=== PATIENT | female | born 1940 | race Caucasian/White ===

== ENCOUNTER 2018-02-18 19:46 | Inpatient (IN) | payer MEDICARE ==
[~2018-02-18] VITALS: Ht 160 cm; Wt 63.6 kg
[~2018-02-18 19:46] MED LIST: ALEN40TA2 PO; AMIO200T40 PO; ASCO1TAB13 PO; BETA1TAB18 PO; CALC-729 PO; CHOL10008 PO; COU2.5T PO; CYPR4TAB57 PO; FLAXSEED; LOSA50TA3 PO; MAGNESIUM 250MG; METAMUCIL POWD283 GM PO; NOR5T PO; OMEG300C2 PO; OMEP-84 PO; POTA10TA19 PO; SPIR25TA5 PO; SYN0.088T PO; WARF5TAB PO; ZOLP10TA5 PO
[2018-02-18] MEDS ORDERED: morphine 4 MG/ML inj SYRINge IV STA (20:17)
[2018-02-18] MEDS ORDERED: ondansetron/PF 4mg/2ml inj IV ONE (20:20)
[2018-02-18] MEDS ORDERED: normal saline 1000ML IV soln IVB ONE (20:55)
[2018-02-18] MEDS ORDERED: propofol 10mg/ml 20ml vial IV ONE (20:55)
[2018-02-18] MEDS ORDERED: morphine 4 MG/ML inj SYRINge IV ONE (22:25)
[2018-02-18] MEDS ORDERED: SPIR25TA5 PO (22:32)
[2018-02-18] MEDS ORDERED: OSC500T PO (22:32)
[2018-02-18] MEDS ORDERED: LOSA25TA96 PO (22:32)
[2018-02-18] MEDS ORDERED: VITA1CAP PO (22:32)
[2018-02-18] MEDS ORDERED: PSYL3.4P5 PO (22:32)
[2018-02-18] MEDS ORDERED: LEVO50TA8 PO (22:32)
[2018-02-18] MEDS ORDERED: CYPR4TAB57 PO (22:32)
[2018-02-18] MEDS ORDERED: COU5T PO (22:32)
[2018-02-18] MEDS ORDERED: AMIO200T54 PO (22:32)
[2018-02-18] MEDS ORDERED: ASCO500C15 PO (22:32)
[2018-02-18] MEDS ORDERED: POTA10TA19 PO (22:32)
[2018-02-18] MEDS ORDERED: COU2.5T PO (22:32)
[2018-02-18] MEDS ORDERED: OMEP40CA37 PO (22:32)
[2018-02-18] MEDS ORDERED: mag hydrox/Alum hydrox/simeth 30ml oral suspension PO PRN (23:15)
[2018-02-18] MEDS ORDERED: acetaminophen 325mg tablet PO PRN (23:15)
[2018-02-18] MEDS ORDERED: ondansetron/PF 4mg/2ml inj IV PRN (23:15)
[2018-02-18] MEDS ORDERED: magnesium hydroxide 30ml (MOM) UD suspension PO PRN (23:15)
[2018-02-18 23:39] LABS: BASOPHILS % (AUTO) 0.3 % (0-1); EOSINOPHILS % (AUTO) 0.2 % (0-6); HEMATOCRIT 37.9 % (35.0-45.0); HEMOGLOBIN 13.3 g/dl (12.0-16.0); LYMPHOCYTES # (AUTO) 0.9 X10'3 (1.1-4.8); MEAN CORPUSCULAR HEMOGLOBIN 31.8 PG (27.0-31.0); MEAN CORPUSCULAR HGB CONC 35.1 % (33.0-36.5); MEAN CORPUSCULAR VOLUME 90.7 FL (78-98); MEAN PLATELET VOLUME 7.2 FL (7.4-10.4); MONOCYTES # (AUTO) 0.5 X10'3 (0-0.9); MONOCYTES % (AUTO) 5.8 % (2-12); NEUTROPHILS # (AUTO) 7.1 X10'3 (1.8-7.7); NEUTROPHILS % (AUTO) 82.7 % (42-75); PLATELET COUNT 362 X10'3 (140-440); RED BLOOD COUNT 4.18 X10'6 (4.20-5.60); RED CELL DISTRIBUTION WIDTH 12.5 % (11.5-14.5); WHITE BLOOD COUNT 8.5 X10'3 (4.5-11.0)
[2018-02-18 23:46] LABS: PARTIAL THROMBOPLASTIN TIME 34 SECONDS (22-32); PROTHROMBIN TIME 20.3 SECONDS (9.0-12.0)
[2018-02-18] MEDS: normal saline 1000ml 1,000 ML IV SCH (23:50)
[2018-02-18 23:52] LABS: ALANINE AMINOTRANSFERASE 35 U/L (12-78); ALBUMIN 3.9 G/DL (3.4-5.0); ALBUMIN/GLOBULIN RATIO 1.3 (1.1-1.5); ALKALINE PHOSPHATASE 57 IU/L (46-116); ANION GAP 12 (8-16); ASPARTATE AMINO TRANSFERASE 33 U/L (10-37); BILIRUBIN,TOTAL 0.5 MG/DL (0.1-1.0); BLOOD UREA NITROGEN 12 MG/DL (7-18); BUN/CREATININE RATIO 15.4 (6.6-38.0); CALCIUM 8.4 MG/DL (8.5-10.1); CHLORIDE 97 MMOL/L (99-107); CREATININE 0.78 MG/DL (0.40-0.90); GLUCOSE 100 MG/DL (70-104); SODIUM 134 MMOL/L (135-145); TOTAL CARBON DIOXIDE 24.9 MMOL/L (24-32); eGFR 71 ML/MIN
[2018-02-19 00:12] LABS: CLARITY,URINE CLEAR (Clear); COLOR,URINE YELLOW (Yellow); GLUCOSE, URINE NEGATIVE (Neg); KETONES,URINE NEGATIVE (Neg); LEUKOCYTE ESTERASE ,URINE NEGATIVE (Neg); NITRITES, URINE NEGATIVE (Neg); OCCULT BLOOD,URINE SMALL (Neg); PH,URINE 5.5 (4.8-8.0); PROTEIN,URINE NEGATIVE (Neg); UROBILINOGEN,URINE 0.2 E.U/dL (0.2-1.0)
[2018-02-19 00:19] LABS: UA COLLECTION TYPE FOLEY CATH
[2018-02-19 00:21] LABS: BACTERIA,URINE NONE SEEN /HPF (Neg); SQUAMOUS EPITHELIAL CELL,UR NONE SEEN /LPF (FEW); WBC,URINE NONE SEEN /HPF (0-4)
[2018-02-19 01:06] VITALS: BP 137/59
[2018-02-19] MEDS: morphine 2 MG/ML inj. syringe IV PRN (01:49)
[2018-02-19] MEDS ORDERED: CYPR4TAB57 PO (02:26)
[2018-02-19] MEDS ORDERED: morphine 2 MG/ML inj. syringe IV STA (02:38)
[2018-02-19] MEDS: morphine 4 MG/ML inj SYRINge IV PRN ×3 (05:48→20:53)
[2018-02-19 06:00] VITALS: BP_SYST 105; BP_SYST 112; BP_DIAS 61; BP_DIAS 67
[2018-02-19 07:50] LABS: BASOPHILS % (AUTO) 0.4 % (0-1); EOSINOPHILS # (AUTO) 0.1 X10'3 (0-0.9); HEMATOCRIT 37.7 % (35.0-45.0); HEMOGLOBIN 13.3 g/dl (12.0-16.0); LYMPHOCYTES # (AUTO) 1.2 X10'3 (1.1-4.8); LYMPHOCYTES % (AUTO) 18.5 % (21-51); MEAN CORPUSCULAR HEMOGLOBIN 31.8 PG (27.0-31.0); MEAN CORPUSCULAR HGB CONC 35.2 % (33.0-36.5); MEAN CORPUSCULAR VOLUME 90.2 FL (78-98); MEAN PLATELET VOLUME 6.9 FL (7.4-10.4); MONOCYTES # (AUTO) 0.7 X10'3 (0-0.9); MONOCYTES % (AUTO) 11.5 % (2-12); NEUTROPHILS # (AUTO) 4.5 X10'3 (1.8-7.7); NEUTROPHILS % (AUTO) 68.6 % (42-75); PLATELET COUNT 333 X10'3 (140-440); RED BLOOD COUNT 4.18 X10'6 (4.20-5.60); RED CELL DISTRIBUTION WIDTH 12.8 % (11.5-14.5); WHITE BLOOD COUNT 6.5 X10'3 (4.5-11.0)
[2018-02-19 07:55] LABS: ALANINE AMINOTRANSFERASE 32 U/L (12-78); ALBUMIN 3.5 G/DL (3.4-5.0); ALBUMIN/GLOBULIN RATIO 1.1 (1.1-1.5); ALKALINE PHOSPHATASE 52 IU/L (46-116); ANION GAP 7 (8-16); ASPARTATE AMINO TRANSFERASE 31 U/L (10-37); BILIRUBIN,TOTAL 0.9 MG/DL (0.1-1.0); BLOOD UREA NITROGEN 9 MG/DL (7-18); BUN/CREATININE RATIO 12.2 (6.6-38.0); CALCIUM 8.5 MG/DL (8.5-10.1); CHLORIDE 101 MMOL/L (99-107); CREATININE 0.74 MG/DL (0.40-0.90); GLUCOSE 90 MG/DL (70-104); POTASSIUM 3.9 MMOL/L (3.5-5.1); SODIUM 136 MMOL/L (135-145); TOTAL CARBON DIOXIDE 27.6 MMOL/L (24-32); TOTAL PROTEIN 6.6 G/DL (6.4-8.2); eGFR 76 ML/MIN
[2018-02-19 08:04] LABS: INR 2.1 INR; PROTHROMBIN TIME 20.7 SECONDS (9.0-12.0)
[2018-02-19] MEDS ORDERED: potassium Cl 40MEQ/NS 500ml 500 ML IV PRN ×2 (09:05)
[2018-02-19] MEDS ORDERED: potassium Cl 20 mEq SR tablet PO PRN ×2 (09:05)
[2018-02-19] MEDS ORDERED: magnesium Cl slow-release 64mg tablet PO PRN (09:05)
[2018-02-19] MEDS ORDERED: magnesium 4gm in 100ml NS 100 ML IV PRN (09:05)
[2018-02-19] MEDS ORDERED: HYDROcodone/acetaminophen 5mg/325mg tablet PO PRN (09:05)
[2018-02-19] MEDS: losartan 50mg tablet PO SCH (09:16)
[2018-02-19] MEDS: pantoprazole 40mg Tablet.DR PO SCH (09:16)
[2018-02-19] MEDS: amiodarone 200mg tablet PO SCH (09:16)
[2018-02-19] MEDS: normal saline 1000ml 1,000 ML IV SCH ×2 (09:21→19:22)
[2018-02-19] MEDS: HYDROcodone/acetaminophen 10/325mg tab PO PRN ×3 (10:52→19:27)
[2018-02-19 11:00] VITALS: BP 153/60
[2018-02-19 18:00] VITALS: BP 141/72
[2018-02-19] MEDS: spironolactone 25 MG tablet PO SCH (18:55)
[2018-02-19] MEDS ORDERED: warfarin 2.5mg tablet PO ONE (21:00)
[2018-02-19] MEDS ORDERED: warfarin 7.5mg tablet PO ONE (21:00)
[2018-02-19 22:00] VITALS: BP 113/74
[2018-02-20] VITALS (7 sets, daily range): BP systolic 137–184; BP diastolic 69–94
[2018-02-20] MEDS: normal saline 1000ml 1,000 ML IV SCH ×2 (04:39→15:49)
[2018-02-20] MEDS: HYDROcodone/acetaminophen 10/325mg tab PO PRN ×2 (05:19→09:55)
[2018-02-20 05:56] LABS: BASOPHILS % (AUTO) 0.4 % (0-1); EOSINOPHILS # (AUTO) 0.1 X10'3 (0-0.9); EOSINOPHILS % (AUTO) 1.8 % (0-6); HEMATOCRIT 35.7 % (35.0-45.0); HEMOGLOBIN 12.6 g/dl (12.0-16.0); LYMPHOCYTES # (AUTO) 1.2 X10'3 (1.1-4.8); LYMPHOCYTES % (AUTO) 15.7 % (21-51); MEAN CORPUSCULAR HEMOGLOBIN 32.6 PG (27.0-31.0); MEAN CORPUSCULAR HGB CONC 35.3 % (33.0-36.5); MEAN CORPUSCULAR VOLUME 92.2 FL (78-98); MEAN PLATELET VOLUME 7.3 FL (7.4-10.4); MONOCYTES # (AUTO) 0.8 X10'3 (0-0.9); MONOCYTES % (AUTO) 10.3 % (2-12); NEUTROPHILS # (AUTO) 5.2 X10'3 (1.8-7.7); NEUTROPHILS % (AUTO) 71.8 % (42-75); PLATELET COUNT 293 X10'3 (140-440); RED BLOOD COUNT 3.87 X10'6 (4.20-5.60); RED CELL DISTRIBUTION WIDTH 12.5 % (11.5-14.5); WHITE BLOOD COUNT 7.3 X10'3 (4.5-11.0)
[2018-02-20 06:16] LABS: ALANINE AMINOTRANSFERASE 30 U/L (12-78); ALBUMIN 3.1 G/DL (3.4-5.0); ALKALINE PHOSPHATASE 54 IU/L (46-116); ANION GAP 8 (8-16); ASPARTATE AMINO TRANSFERASE 29 U/L (10-37); BILIRUBIN,TOTAL 0.9 MG/DL (0.1-1.0); BLOOD UREA NITROGEN 7 MG/DL (7-18); BUN/CREATININE RATIO 9.7 (6.6-38.0); CALCIUM 8.3 MG/DL (8.5-10.1); CHLORIDE 102 MMOL/L (99-107); CREATININE 0.72 MG/DL (0.40-0.90); GLUCOSE 111 MG/DL (70-104); MAGNESIUM 1.8 MG/DL (1.5-2.4); PHOSPHORUS 2.8 MG/DL (2.3-4.5); POTASSIUM 3.8 MMOL/L (3.5-5.1); SODIUM 136 MMOL/L (135-145); TOTAL CARBON DIOXIDE 25.7 MMOL/L (24-32); TOTAL PROTEIN 6.3 G/DL (6.4-8.2); eGFR 78 ML/MIN
[2018-02-20] MEDS: morphine 4 MG/ML inj SYRINge IV PRN (06:43)
[2018-02-20] MEDS: levoTHYROXINE 25mcg tablet PO SCH (06:46)
[2018-02-20] MEDS: calcium carbonate 500mg tablet PO SCH (08:32)
[2018-02-20] MEDS: spironolactone 25 MG tablet PO SCH (08:32)
[2018-02-20] MEDS: pantoprazole 40mg Tablet.DR PO SCH (08:32)
[2018-02-20] MEDS: losartan 50mg tablet PO SCH (08:32)
[2018-02-20] MEDS: ascorbic acid 500mg tablet PO SCH (08:33)
[2018-02-20] MEDS: vitamin B comp w/Vit. C tab 1 TAB TABLET PO SCH (08:33)
[2018-02-20] MEDS: amiodarone 200mg tablet PO SCH (08:33)
[2018-02-20] MEDS ORDERED: LORazepam 2 mg/ml vial IV PRN (10:05)
[2018-02-20] MEDS ORDERED: thiamine 100mg/ml 2ml inj. IV ONE (10:05)
[2018-02-20] MEDS ORDERED: dextrose 50%-water 50ml dispensing syringe IV PRN (10:05)
[2018-02-20] MEDS ORDERED: haloperidol lactate 5mg/ml inj IM PRN (10:05)
[2018-02-20] MEDS ORDERED: haloperidol 5mg tablet PO PRN (10:05)
[2018-02-20] MEDS ORDERED: thiamine 100mg tablet PO ONE (11:05)
[2018-02-20] MEDS: oxyCODONE/APAP 10/325mg tablet PO PRN ×2 (11:50→20:16)
[2018-02-20] MEDS ORDERED: amLODIPine 5mg tablet PO ONE (13:10)
[2018-02-20] MEDS: LORazepam 1 MG tablet PO PRN (13:24)
[2018-02-20 13:35] LABS: INR 1.8 INR; PROTHROMBIN TIME 17.9 SECONDS (9.0-12.0)
[2018-02-20] MEDS ORDERED: warfarin 2.5mg tablet PO ONE (21:00)
[2018-02-21] MEDS: oxyCODONE/APAP 10/325mg tablet PO PRN ×2 (00:12→13:57)
[2018-02-21] MEDS: normal saline 1000ml 1,000 ML IV SCH ×2 (01:24→10:10)
[2018-02-21 06:00] VITALS: BP 147/67
[2018-02-21 06:27] LABS: INR 1.6 INR; PROTHROMBIN TIME 16.6 SECONDS (9.0-12.0)
[2018-02-21 06:30] LABS: ALANINE AMINOTRANSFERASE 21 U/L (12-78); ALBUMIN 2.4 G/DL (3.4-5.0); ALBUMIN/GLOBULIN RATIO 0.8 (1.1-1.5); ALKALINE PHOSPHATASE 39 IU/L (46-116); ANION GAP 5 (8-16); ASPARTATE AMINO TRANSFERASE 20 U/L (10-37); BILIRUBIN,TOTAL 0.8 MG/DL (0.1-1.0); BLOOD UREA NITROGEN 6 MG/DL (7-18); BUN/CREATININE RATIO 9.2 (6.6-38.0); CALCIUM 7.9 MG/DL (8.5-10.1); CHLORIDE 104 MMOL/L (99-107); CREATININE 0.65 MG/DL (0.40-0.90); GLUCOSE 91 MG/DL (70-104); MAGNESIUM 1.7 MG/DL (1.5-2.4); PHOSPHORUS 2.6 MG/DL (2.3-4.5); POTASSIUM 3.7 MMOL/L (3.5-5.1); SODIUM 137 MMOL/L (135-145); TOTAL CARBON DIOXIDE 27.7 MMOL/L (24-32); TOTAL PROTEIN 5.4 G/DL (6.4-8.2); eGFR 88 ML/MIN
[2018-02-21 06:41] LABS: BASOPHILS % (AUTO) 0.4 % (0-1); EOSINOPHILS # (AUTO) 0.2 X10'3 (0-0.9); EOSINOPHILS % (AUTO) 3.7 % (0-6); HEMATOCRIT 32.8 % (35.0-45.0); HEMOGLOBIN 11.2 g/dl (12.0-16.0); LYMPHOCYTES # (AUTO) 1.5 X10'3 (1.1-4.8); LYMPHOCYTES % (AUTO) 30.3 % (21-51); MEAN CORPUSCULAR HEMOGLOBIN 31.3 PG (27.0-31.0); MEAN CORPUSCULAR HGB CONC 34.1 % (33.0-36.5); MEAN CORPUSCULAR VOLUME 91.8 FL (78-98); MEAN PLATELET VOLUME 7.2 FL (7.4-10.4); MONOCYTES # (AUTO) 0.6 X10'3 (0-0.9); MONOCYTES % (AUTO) 12.7 % (2-12); NEUTROPHILS # (AUTO) 2.5 X10'3 (1.8-7.7); NEUTROPHILS % (AUTO) 52.9 % (42-75); PLATELET COUNT 292 X10'3 (140-440); RED BLOOD COUNT 3.58 X10'6 (4.20-5.60); RED CELL DISTRIBUTION WIDTH 12.6 % (11.5-14.5); WHITE BLOOD COUNT 4.8 X10'3 (4.5-11.0)
[2018-02-21] MEDS: levoTHYROXINE 25mcg tablet PO SCH (07:55)
[2018-02-21] MEDS: spironolactone 25 MG tablet PO SCH (07:58)
[2018-02-21] MEDS: losartan 50mg tablet PO SCH (07:59)
[2018-02-21] MEDS: amiodarone 200mg tablet PO SCH (07:59)
[2018-02-21] MEDS: pantoprazole 40mg Tablet.DR PO SCH (07:59)
[2018-02-21] MEDS: ascorbic acid 500mg tablet PO SCH (08:00)
[2018-02-21] MEDS: vitamin B comp w/Vit. C tab 1 TAB TABLET PO SCH (08:00)
[2018-02-21] MEDS ORDERED: amLODIPine 5mg tablet PO SCH (08:00)
[2018-02-21] MEDS: calcium carbonate 500mg tablet PO SCH (08:00)
[2018-02-21 10:00] VITALS: BP 140/73
[2018-02-21] MEDS: LORazepam 1 MG tablet PO PRN (12:10)
[2018-02-21] MEDS: morphine 2 MG/ML inj. syringe IV PRN (12:49)
[2018-02-21] MEDS ORDERED: warfarin 5mg tablet PO ONE (21:00)
== END 2018-02-21 16:24 | DRG 543 ==
LOC: ER 19:47 → ED HOLD 23:15 → ORTHO 4S 02-19 00:40
PROVIDERS: ADMIT Internal Medicine; ATTEND Family Medicine
PROC: 2W3QX1Z Immobilization of Right Lower Leg using Splint (ICD-10-PCS; principal; 2018-02-18)
PROC: 0SSFXZZ Reposition Right Ankle Joint, External Approach (ICD-10-PCS; 2018-02-18)
DX: M80.071A Age-related osteoporosis with current pathological fracture, right ankle and foot, initial encounter for fracture (principal); D68.9 Coagulation defect, unspecified; M24.371 Pathological dislocation of right ankle, not elsewhere classified; E03.9 Hypothyroidism, unspecified; F10.20 Alcohol dependence, uncomplicated; I10 Essential (primary) hypertension; W01.0XXA Fall on same level from slipping, tripping and stumbling without subsequent striking against object, initial encounter; I48.2 Chronic atrial fibrillation; G43.909 Migraine, unspecified, not intractable, without status migrainosus; J45.909 Unspecified asthma, uncomplicated; S09.90XA Unspecified injury of head, initial encounter; Z90.710 Acquired absence of both cervix and uterus; Z95.0 Presence of cardiac pacemaker; Z98.42 Cataract extraction status, left eye; Z98.41 Cataract extraction status, right eye; Z79.01 Long term (current) use of anticoagulants; Z85.42 Personal history of malignant neoplasm of other parts of uterus; Y93.89 Activity, other specified; Y92.090 Kitchen in other non-institutional residence as the place of occurrence of the external cause; Y99.8 Other external cause status; Z79.899 Other long term (current) drug therapy
CPT/HCPCS: 36415; 70450; 73590; 73610; 73700; 80053; 81001; 82948; 83735; 84100; 84443; 85025; 85610; 85730; 87070; 93005; 96361; 96374; 96375; 96376; 97110; 97161; 97530; 99285; J2270; J2405; J2704; J3411; J7030

== ENCOUNTER 2018-06-19 19:00 | Emergency (ER) | payer MEDICARE ==
[~2018-06-19] VITALS: Ht 157.5 cm; Wt 60.0 kg
[~2018-06-19 19:00] MED LIST changes: -ALEN40TA2 PO; -AMIO200T40 PO; +AMIO200T54 PO; -ASCO1TAB13 PO; +ASCO500C15 PO; -BETA1TAB18 PO; -CALC-729 PO; -CHOL10008 PO; +COU5T PO; -FLAXSEED; +LEVO50TA8 PO; +LOSA25TA96 PO; -LOSA50TA3 PO; -MAGNESIUM 250MG; -METAMUCIL POWD283 GM PO; -NOR5T PO; -OMEG300C2 PO; -OMEP-84 PO; +OMEP40CA37 PO; +OSC500T PO; +PSYL3.4P5 PO; -SYN0.088T PO; +VITA1CAP PO; -WARF5TAB PO; -ZOLP10TA5 PO
[2018-06-19 19:05] VITALS: BP 134/65
[2018-06-19 19:54] LABS: BASOPHILS % (AUTO) 0 % (0-1); EOSINOPHILS % (AUTO) 0.1 % (0-6); HEMATOCRIT 38.1 % (35.0-45.0); LYMPHOCYTES # (AUTO) 0.2 X10'3 (1.1-4.8); MEAN CORPUSCULAR HEMOGLOBIN 30.3 PG (27.0-31.0); MEAN CORPUSCULAR HGB CONC 34.2 g/dL (33.0-36.5); MEAN CORPUSCULAR VOLUME 88.6 FL (78-98); MEAN PLATELET VOLUME 6.7 FL (7.4-10.4); MONOCYTES # (AUTO) 0.5 X10'3 (0-0.9); MONOCYTES % (AUTO) 4.3 % (2-12); NEUTROPHILS # (AUTO) 10.7 X10'3 (1.8-7.7); NEUTROPHILS % (AUTO) 93.6 % (42-75); PLATELET COUNT 302 X10'3 (140-440); RED CELL DISTRIBUTION WIDTH 14.6 % (11.5-14.5); WHITE BLOOD COUNT 11.5 X10'3 (4.5-11.0)
[2018-06-19 20:08] LABS: INR 3.4 INR; PROTHROMBIN TIME 32.1 SECONDS (9.0-12.0)
[2018-06-19 20:12] LABS: ALANINE AMINOTRANSFERASE 64 U/L (12-78); ALBUMIN 3.1 G/DL (3.4-5.0); ALBUMIN/GLOBULIN RATIO 0.8 (1.1-1.5); ALKALINE PHOSPHATASE 66 IU/L (46-116); ANION GAP 10 (8-16); ASPARTATE AMINO TRANSFERASE 42 U/L (10-37); BLOOD UREA NITROGEN 22 MG/DL (7-18); CALCIUM 8.1 MG/DL (8.5-10.1); CHLORIDE 100 MMOL/L (99-107); CREATININE 1.05 MG/DL (0.40-0.90); GLUCOSE 133 MG/DL (70-104); SODIUM 135 MMOL/L (135-145); TOTAL CARBON DIOXIDE 25.4 MMOL/L (24-32); eGFR 51 ML/MIN
[2018-06-19 20:20] LABS: PLATELET ESTIMATE NORMAL; TOTAL CELLS COUNTED 100
[2018-06-20] MEDS ORDERED: LEVO50TA PO (12:55)
[2018-06-20] MEDS ORDERED: AMIO200T40 PO (12:56)
[2018-06-20] MEDS ORDERED: LOSA100T57 PO (12:56)
[2018-06-20] MEDS ORDERED: OMEP40CA37 PO (12:57)
[2018-06-20] MEDS ORDERED: SPIR25TA5 PO (12:58)
[2018-06-20] MEDS ORDERED: POTA20TA19 PO (12:58)
[2018-06-20] MEDS ORDERED: CYPR4TAB57 PO (12:59)
[2018-06-20] MEDS ORDERED: PSYL3.4P5 PO (13:00)
[2018-06-20] MEDS ORDERED: ASCO-22 PO (13:02)
[2018-06-20] MEDS ORDERED: CALC-1051 PO (13:04)
[2018-06-20] MEDS ORDERED: VITA-268 PO (13:05)
[2018-06-20] MEDS ORDERED: RED600TA PO (13:05)
[2018-06-20] MEDS ORDERED: WARF2.5T82 PO (13:06)
[2018-06-20] MEDS ORDERED: WARF-55 PO (13:07)
== END 2018-06-19 23:29 | disposition left against medical advice (07) ==
LOC: ER 19:00
DX: R10.9 Unspecified abdominal pain (principal); Z53.21 Procedure and treatment not carried out due to patient leaving prior to being seen by health care provider
CPT/HCPCS: 36415; 80053; 85025; 85610

== ENCOUNTER 2018-06-20 09:29 | Inpatient (IN) | payer MEDICARE | END 2018-06-27 17:10 | disposition home or self-care (01) | LOC: ER 09:29 → ED HOLD 12:28 → PCU 3S 17:20 | DX: A41.9 Sepsis, unspecified organism (principal); J18.1 Lobar pneumonia, unspecified organism; G93.40 Encephalopathy, unspecified ==

== ENCOUNTER 2020-03-13 13:42 | Emergency (ER) | payer MEDICARE ==
[~2020-03-13] VITALS: Ht 160 cm; Wt 67.0 kg
[~2020-03-13 13:42] MED LIST changes: -AMIO200T54 PO; +AMIO200T61 PO; +ASCO-22 PO; -ASCO500C15 PO; +CALC-1051 PO; +CARV3.12 PO; -COU2.5T PO; -COU5T PO; +FISH12002 PO; +FURO-149 PO; +LACT1CAP26 PO; +LEVO50TA PO; -LEVO50TA8 PO; +LOSA100T57 PO; -LOSA25TA96 PO; +OMEP40CA13 PO; -OMEP40CA37 PO; -OSC500T PO; -POTA10TA19 PO; +POTA20TA19 PO; -SPIR25TA5 PO; +VITA-268 PO; -VITA1CAP PO; +WARF2.5T82 PO
[2020-03-13] MEDS ORDERED: HYDROcodone/acetaminophen 5mg/325mg tablet PO ONE (14:55)
[2020-03-13 15:21] VITALS: BP 149/68
== END 2020-03-13 15:25 | disposition home or self-care (01) ==
LOC: ER 13:43
DX: S20.211A Contusion of right front wall of thorax, initial encounter (principal); G43.909 Migraine, unspecified, not intractable, without status migrainosus; I48.91 Unspecified atrial fibrillation; I50.9 Heart failure, unspecified; I11.0 Hypertensive heart disease with heart failure; J45.909 Unspecified asthma, uncomplicated; E03.9 Hypothyroidism, unspecified; Z85.9 Personal history of malignant neoplasm, unspecified; Z90.710 Acquired absence of both cervix and uterus; Z95.0 Presence of cardiac pacemaker; Z98.890 Other specified postprocedural states; Z79.899 Other long term (current) drug therapy; Z79.01 Long term (current) use of anticoagulants; X58.XXXA Exposure to other specified factors, initial encounter; Y93.89 Activity, other specified; Y92.89 Other specified places as the place of occurrence of the external cause; Y99.8 Other external cause status
CPT/HCPCS: 71100; 93005; 99283

== ENCOUNTER 2020-07-06 21:21 | Emergency (ER) | payer MEDICARE ==
[~2020-07-06] VITALS: Ht 160 cm; Wt 65.9 kg
--- NOTE | 2020-07-06 21:28 | NUR ---
SARA KERNS () [phone] CALL FOR A RIDE.
[2020-07-06 21:49] LABS: BASOPHILS # (AUTO) 0.1 X10'3 (0-0.2); EOSINOPHILS # (AUTO) 0.1 X10'3 (0-0.9); EOSINOPHILS % (AUTO) 2.6 % (0-6); HEMOGLOBIN 12.6 g/dl (12.0-16.0); LYMPHOCYTES # (AUTO) 1.6 X10'3 (1.1-4.8); MEAN CORPUSCULAR HEMOGLOBIN 31.2 PG (27.0-31.0); MEAN CORPUSCULAR VOLUME 91.8 FL (78-98); MEAN PLATELET VOLUME 6.7 FL (7.4-10.4); MONOCYTES # (AUTO) 0.5 X10'3 (0-0.9); MONOCYTES % (AUTO) 9.3 % (2-12); NEUTROPHILS # (AUTO) 2.8 X10'3 (1.8-7.7); NEUTROPHILS % (AUTO) 55.1 % (42-75); PLATELET COUNT 341 X10'3 (140-440); RED BLOOD COUNT 4.03 X10'6 (4.20-5.60); RED CELL DISTRIBUTION WIDTH 13.3 % (11.5-14.5); WHITE BLOOD COUNT 5.1 X10'3 (4.5-11.0)
[2020-07-06 21:56] LABS: ALANINE AMINOTRANSFERASE 27 U/L (12-78); ALBUMIN 3.6 G/DL (3.4-5.0); ALBUMIN/GLOBULIN RATIO 1.1 (1.1-1.5); ALKALINE PHOSPHATASE 59 IU/L (46-116); ANION GAP 11 (8-16); ASPARTATE AMINO TRANSFERASE 23 U/L (10-37); BILIRUBIN,TOTAL 0.4 MG/DL (0.1-1.0); BLOOD UREA NITROGEN 15 MG/DL (7-18); BUN/CREATININE RATIO 13.9 (6.6-38.0); CALCIUM 9.2 MG/DL (8.5-10.1); CHLORIDE 102 MMOL/L (99-107); CREATININE 1.08 MG/DL (0.40-0.90); GLUCOSE 93 MG/DL (70-104); POTASSIUM 3.4 MMOL/L (3.5-5.1); SODIUM 139 MMOL/L (135-145); TOTAL CARBON DIOXIDE 26.5 MMOL/L (24-32); eGFR 49 ML/MIN
[2020-07-06] MEDS ORDERED: iohexol 300mg/ml 100ml inj. ONE (22:59)
[2020-07-07 02:04] VITALS: BP 152/63
== END 2020-07-07 02:07 | disposition home or self-care (01) ==
LOC: ER 21:21
DX: R55 Syncope and collapse (principal); R77.8 Other specified abnormalities of plasma proteins; K59.00 Constipation, unspecified; R51.9 Headache, unspecified; R10.84 Generalized abdominal pain; I48.91 Unspecified atrial fibrillation; G43.909 Migraine, unspecified, not intractable, without status migrainosus; I11.0 Hypertensive heart disease with heart failure; I50.9 Heart failure, unspecified; J45.909 Unspecified asthma, uncomplicated; E03.9 Hypothyroidism, unspecified; Z85.9 Personal history of malignant neoplasm, unspecified; Z90.710 Acquired absence of both cervix and uterus; Z95.0 Presence of cardiac pacemaker; Z98.890 Other specified postprocedural states; Z72.89 Other problems related to lifestyle; Z79.899 Other long term (current) drug therapy
CPT/HCPCS: 36415; 70450; 71045; 74177; 80053; 83880; 84484; 85025; 85610; 93005; 99285; Q9967

== ENCOUNTER 2021-03-07 01:24 | Emergency (ER) | payer MEDICARE ==
[~2021-03-07] VITALS: Ht 160 cm; Wt 67.3 kg
[~2021-03-07 01:24] MED LIST changes: -OMEP40CA13 PO; +OMEP40CA21 PO
[2021-03-07 02:18] LABS: BASOPHILS % (AUTO) 0.7 % (0-1); EOSINOPHILS # (AUTO) 0.1 X10'3 (0-0.9); EOSINOPHILS % (AUTO) 2.1 % (0-6); HEMATOCRIT 36.6 % (35.0-45.0); HEMOGLOBIN 12.5 g/dl (12.0-16.0); LYMPHOCYTES # (AUTO) 1.2 X10'3 (1.1-4.8); LYMPHOCYTES % (AUTO) 29.9 % (21-51); MEAN CORPUSCULAR HEMOGLOBIN 30.7 PG (27.0-31.0); MEAN CORPUSCULAR HGB CONC 34.2 g/dL (33.0-36.5); MEAN CORPUSCULAR VOLUME 89.6 FL (78-98); MEAN PLATELET VOLUME 6.5 FL (7.4-10.4); MONOCYTES # (AUTO) 0.5 X10'3 (0-0.9); MONOCYTES % (AUTO) 12.1 % (2-12); NEUTROPHILS # (AUTO) 2.3 X10'3 (1.8-7.7); NEUTROPHILS % (AUTO) 55.2 % (42-75); PLATELET COUNT 336 X10'3 (140-440); RED BLOOD COUNT 4.09 X10'6 (4.20-5.60); RED CELL DISTRIBUTION WIDTH 13.9 % (11.5-14.5); WHITE BLOOD COUNT 4.1 X10'3 (4.5-11.0)
[2021-03-07 03:21] LABS: ALANINE AMINOTRANSFERASE 44 U/L (12-78); ALBUMIN 3.3 G/DL (3.4-5.0); ALBUMIN/GLOBULIN RATIO 0.9 (1.1-1.5); ALKALINE PHOSPHATASE 36 IU/L (46-116); ANION GAP 11 (8-16); ASPARTATE AMINO TRANSFERASE 25 U/L (10-37); BILIRUBIN,TOTAL 0.3 MG/DL (0.1-1.0); BLOOD UREA NITROGEN 16 MG/DL (7-18); BUN/CREATININE RATIO 12.6 (6.6-38.0); CALCIUM 8.5 MG/DL (8.5-10.1); CHLORIDE 99 MMOL/L (99-107); CREATININE 1.27 MG/DL (0.40-0.90); GLUCOSE 140 MG/DL (70-104); MAGNESIUM 2.1 MG/DL (1.5-2.4); POTASSIUM 3.6 MMOL/L (3.5-5.1); SODIUM 134 MMOL/L (135-145); TOTAL CARBON DIOXIDE 24.1 MMOL/L (24-32); TOTAL PROTEIN 6.8 G/DL (6.4-8.2); eGFR 40 ML/MIN
[2021-03-07 04:30] VITALS: BP 139/70
== END 2021-03-07 06:15 | disposition home or self-care (01) ==
LOC: ER 01:25
DX: R55 Syncope and collapse (principal); R06.02 Shortness of breath; R06.01 Orthopnea; I48.91 Unspecified atrial fibrillation; I11.0 Hypertensive heart disease with heart failure; J45.909 Unspecified asthma, uncomplicated; E03.9 Hypothyroidism, unspecified; Z85.9 Personal history of malignant neoplasm, unspecified; Z95.0 Presence of cardiac pacemaker; Z79.01 Long term (current) use of anticoagulants; Z79.899 Other long term (current) drug therapy; Z90.710 Acquired absence of both cervix and uterus
CPT/HCPCS: 36415; 71045; 80053; 83735; 83880; 84484; 85025; 93005; 99285

== ENCOUNTER 2022-08-22 10:12 | Day surgery (SDC) | payer MEDICARE ==
[2022-08-18 11:30] LABS: BASOPHILS # (AUTO) 0.1 X10'3 (0-0.2); BASOPHILS % (AUTO) 1.5 % (0-1); EOSINOPHILS # (AUTO) 0.1 X10'3 (0-0.9); EOSINOPHILS % (AUTO) 2.6 % (0-6); HEMATOCRIT 39.5 % (35.0-45.0); HEMOGLOBIN 13.4 g/dl (12.0-16.0); LYMPHOCYTES # (AUTO) 1.3 X10'3 (1.1-4.8); LYMPHOCYTES % (AUTO) 34.1 % (21-51); MEAN CORPUSCULAR HEMOGLOBIN 30.8 PG (27.0-31.0); MEAN CORPUSCULAR HGB CONC 33.9 g/dL (33.0-36.5); MEAN CORPUSCULAR VOLUME 90.8 FL (78-98); MEAN PLATELET VOLUME 6.3 FL (7.4-10.4); MONOCYTES # (AUTO) 0.4 X10'3 (0-0.9); NEUTROPHILS % (AUTO) 51.8 % (42-75); PLATELET COUNT 333 X10'3 (140-440); RED BLOOD COUNT 4.35 X10'6 (4.20-5.60); WHITE BLOOD COUNT 3.8 X10'3 (4.5-11.0)
[2022-08-18 11:40] LABS: APTT 44 SECONDS (22-32)
[2022-08-18 11:45] LABS: ALBUMIN 3.6 G/DL (3.4-5.0); ANION GAP 7 (8-16); BLOOD UREA NITROGEN 14 MG/DL (7-18); BUN/CREATININE RATIO 17.1 (10.0-20.0); CHLORIDE 101 MMOL/L (99-107); CHOL/HDL RATIO 2.8 (0.00-4.99); CHOLESTEROL 273 MG/DL (0-200); CREATININE 0.82 MG/DL (0.40-0.90); GLUCOSE 100 MG/DL (70-104); HDL CHOLESTEROL 99 MG/DL (35-60); LDL CHOLESTEROL 144 MG/DL (50-100); SODIUM 137 MMOL/L (135-145); TOTAL CARBON DIOXIDE 29.4 MMOL/L (24-32); TRIGLYCERIDES 61 MG/DL (20-135); eGFR 67 ML/MIN
[~2022-08-22] VITALS: Ht 160 cm; Wt 70.1 kg
[2022-08-22] VITALS (8 sets, daily range): BP systolic 132–176; BP diastolic 56–78
[~2022-08-22 10:12] MED LIST changes: -ASCO-22 PO; -CALC-1051 PO; -CARV3.12 PO; +CARV6.2553 PO; +DONE-46 PO; -FISH12002 PO; -FURO-149 PO; -LACT1CAP26 PO; -LOSA100T57 PO; -POTA20TA19 PO; -PSYL3.4P5 PO; +SACU1TAB7 PO; +SPIR25TA5 PO; -VITA-268 PO; +ZOLP5TAB8 PO
[2022-08-22] MEDS ORDERED: normal saline 1,000 ML IV SCH (10:25)
[2022-08-22] MEDS ORDERED: diphenhydrAMINE 25mg capsule PO PRN (10:25)
[2022-08-22] MEDS ORDERED: LORazepam 0.5 MG tablet PO PRN (10:25)
[2022-08-22] MEDS ORDERED: DENO60DI SUBCUT (10:50)
[2022-08-22] MEDS ORDERED: SACU1TAB PO (10:50)
[2022-08-22] MEDS ORDERED: CHOL50004 PO (11:04)
[2022-08-22] MEDS ORDERED: VITA-268 PO (11:04)
[2022-08-22] MEDS ORDERED: CALC500T63 PO (11:04)
[2022-08-22] MEDS ORDERED: OMEG-5 PO (11:04)
[2022-08-22] MEDS ORDERED: LACT1CAP65 PO (11:04)
[2022-08-22] MEDS ORDERED: ASCO500C17 PO (11:04)
[2022-08-22] MEDS ORDERED: verapamil 2.5 mg/ml inj IV ONE (11:56)
[2022-08-22] MEDS ORDERED: nitroGLYCERIN-Tridil 50MG/D5W 250 ML IV ONE (11:56)
[2022-08-22] MEDS ORDERED: fentaNYL/PF 50MCG/1 ML 2ML syringe ONE (11:56)
[2022-08-22] MEDS ORDERED: iohexol 350MG/ML 100ml bottle IV ONE (11:57)
[2022-08-22] MEDS ORDERED: LIDOcaine 1% (10mg/ml) 2ml vial ONE (11:57)
[2022-08-22] MEDS ORDERED: heparin 1,000unit/ml 10ml vial 10 ML ONE (11:57)
[2022-08-22] MEDS ORDERED: midazolam 1 mg/ML 2ml injection ONE (11:57)
[2022-08-22] MEDS ORDERED: LIDOcaine 1% 30ml preserv. free vial ONE (13:18)
[2022-08-22] MEDS ORDERED: HYDROcodone/acetaminophen 10/325mg tab PO PRN (14:15)
[2022-08-22] MEDS ORDERED: HYDROcodone/acetaminophen 5mg/325mg tablet PO PRN (14:15)
[2022-08-22 15:24] LABS: ISTAT Hct MIX 37 %PCV (35-45); ISTAT O2 SATURATION MIX VENOUS 93 % (60-80); ISTAT SOURCE BLNK
== END 2022-08-22 16:45 | disposition home or self-care (01) ==
LOC: SSTAY O 10:12
PROVIDERS: ATTEND Student in an Organized Health Care Education/Training Program
DX: I35.0 Nonrheumatic aortic (valve) stenosis (principal); I25.10 Atherosclerotic heart disease of native coronary artery without angina pectoris; G47.33 Obstructive sleep apnea (adult) (pediatric); I11.0 Hypertensive heart disease with heart failure; I50.9 Heart failure, unspecified; I44.7 Left bundle-branch block, unspecified; I42.9 Cardiomyopathy, unspecified; E78.5 Hyperlipidemia, unspecified; K21.9 Gastro-esophageal reflux disease without esophagitis; E87.1 Hypo-osmolality and hyponatremia; E87.6 Hypokalemia; I48.0 Paroxysmal atrial fibrillation; Z95.810 Presence of automatic (implantable) cardiac defibrillator; Z79.899 Other long term (current) drug therapy; Z85.42 Personal history of malignant neoplasm of other parts of uterus
CPT/HCPCS: 36415; 80048; 80061; 82803; 85014; 85025; 85610; 85730; 93005; 93456; 99152; C1894; J1644; J2250; J3010; J3490; J7030; Q0163; Q9967; 93460; 99153; A6258; A6402; C1751

== ENCOUNTER 2022-09-15 10:24 | Outpatient (CLI) | payer MEDICARE ==
[~2022-09-15 10:24] MED LIST changes: +ASCO500C17 PO; +CALC500T63 PO; +CHOL50004 PO; +DENO60DI SUBCUT; -DONE-46 PO; +LACT1CAP65 PO; +OMEG-5 PO; +SACU1TAB PO; -SACU1TAB7 PO; +VITA-268 PO
[2022-09-15 10:58] LABS: EOSINOPHILS % (AUTO) 1.3 % (0-6); HEMATOCRIT 39.7 % (35.0-45.0); HEMOGLOBIN 13.4 g/dl (12.0-16.0); LYMPHOCYTES # (AUTO) 0.9 X10'3 (1.1-4.8); LYMPHOCYTES % (AUTO) 25.1 % (21-51); MEAN CORPUSCULAR HEMOGLOBIN 30.9 PG (27.0-31.0); MEAN CORPUSCULAR HGB CONC 33.9 g/dL (33.0-36.5); MEAN CORPUSCULAR VOLUME 91.2 FL (78-98); MEAN PLATELET VOLUME 6.4 FL (7.4-10.4); MONOCYTES # (AUTO) 0.3 X10'3 (0-0.9); MONOCYTES % (AUTO) 9.6 % (2-12); NEUTROPHILS # (AUTO) 2.3 X10'3 (1.8-7.7); PLATELET COUNT 352 X10'3 (140-440); RED BLOOD COUNT 4.35 X10'6 (4.20-5.60); RED CELL DISTRIBUTION WIDTH 14.3 % (11.5-14.5); WHITE BLOOD COUNT 3.6 X10'3 (4.5-11.0)
[2022-09-15 11:08] LABS: APTT 38 SECONDS (22-32)
[2022-09-15 11:31] LABS: ALANINE AMINOTRANSFERASE 32 U/L (12-78); ALBUMIN 3.6 G/DL (3.4-5.0); ALBUMIN/GLOBULIN RATIO 1.2 (1.1-1.5); ALKALINE PHOSPHATASE 45 IU/L (46-116); ANION GAP 7 (8-16); ASPARTATE AMINO TRANSFERASE 19 U/L (10-37); BILIRUBIN,TOTAL 0.6 MG/DL (0.1-1.0); BLOOD UREA NITROGEN 15 MG/DL (7-18); CALCIUM 9.1 MG/DL (8.5-10.1); CHLORIDE 98 MMOL/L (99-107); CREATININE 0.88 MG/DL (0.40-0.90); GLUCOSE 109 MG/DL (70-104); POTASSIUM 4.1 MMOL/L (3.5-5.1); SODIUM 133 MMOL/L (135-145); TOTAL CARBON DIOXIDE 28.2 MMOL/L (24-32); TOTAL PROTEIN 6.7 G/DL (6.4-8.2); eGFR 61 ML/MIN
[2022-09-15] MEDS ORDERED: IODIXANOL 320 MG/ML INFUS..BTL 100ML IV ONE ×2 (11:35→12:22)
[2022-09-15 11:42] LABS: CHOL/HDL RATIO 2.8 (0.00-4.99); CHOLESTEROL 286 MG/DL (0-200); HDL CHOLESTEROL 103 MG/DL (35-60); LDL CHOLESTEROL 138 MG/DL (50-100); TRIGLYCERIDES 56 MG/DL (20-135)
== END 2022-09-15 23:59 | disposition home or self-care (01) ==
LOC: RAD 10:24
PROVIDERS: ATTEND Internal Medicine Cardiovascular Disease
DX: Z01.818 Encounter for other preprocedural examination (principal); I70.0 Atherosclerosis of aorta; G47.30 Sleep apnea, unspecified; I35.0 Nonrheumatic aortic (valve) stenosis; R06.02 Shortness of breath; I65.29 Occlusion and stenosis of unspecified carotid artery; Z79.01 Long term (current) use of anticoagulants; Z79.899 Other long term (current) drug therapy
CPT/HCPCS: 36415; 71046; 71275; 74174; 80053; 80061; 83880; 84443; 85025; 85610; 85730; 94010; 94727; 94729; A6258; J3490; Q9967

== ENCOUNTER 2022-11-16 07:35 | Inpatient (IN) | payer MEDICARE ==
[2022-11-10 10:32] LABS: CLARITY,URINE CLEAR (Clear); GLUCOSE, URINE NEGATIVE (Neg); KETONES,URINE NEGATIVE (Neg); LEUKOCYTE ESTERASE ,URINE NEGATIVE (Neg); NITRITES, URINE NEGATIVE (Neg); OCCULT BLOOD,URINE NEGATIVE (Neg); PROTEIN,URINE NEGATIVE (Neg); UROBILINOGEN,URINE 0.2 E.U/dL (0.2-1.0)
[2022-11-10 10:33] LABS: COLOR,URINE STRAW (Yellow); UA COLLECTION TYPE CLN CATCH MIDSTREAM
[2022-11-10 10:56] LABS: BASOPHILS % (AUTO) 0.8 % (0-1); EOSINOPHILS # (AUTO) 0.1 X10'3 (0-0.9); EOSINOPHILS % (AUTO) 1.4 % (0-6); LYMPHOCYTES # (AUTO) 1.1 X10'3 (1.1-4.8); LYMPHOCYTES % (AUTO) 21.6 % (21-51); MEAN CORPUSCULAR HEMOGLOBIN 30.4 PG (27.0-31.0); MEAN CORPUSCULAR HGB CONC 33.3 g/dL (33.0-36.5); MEAN CORPUSCULAR VOLUME 91.3 FL (78-98); MEAN PLATELET VOLUME 6.4 FL (7.4-10.4); MONOCYTES # (AUTO) 0.5 X10'3 (0-0.9); MONOCYTES % (AUTO) 9.9 % (2-12); NEUTROPHILS # (AUTO) 3.4 X10'3 (1.8-7.7); NEUTROPHILS % (AUTO) 66.3 % (42-75); PRE OP HEMATOCRIT 42.2 % (35.0-45.0); PRE OP HEMOGLOBIN 14.1 g/dL (12.0-16.0); PRE OP PLATELET COUNT 348 X10'3 (140-440); RED BLOOD COUNT 4.62 X10'6 (4.20-5.60); RED CELL DISTRIBUTION WIDTH 14.2 % (11.5-14.5)
[2022-11-10 11:01] LABS: PRE OP PROTIME 19.4 SECONDS (9.0-12.0)
[2022-11-10 11:02] LABS: PRE OP INR 1.9 INR
[2022-11-10 11:15] LABS: ALBUMIN 3.7 G/DL (3.4-5.0); ALKALINE PHOSPHATASE 54 IU/L (46-116); BLOOD UREA NITROGEN 12 MG/DL (7-18); CALCIUM 9.4 MG/DL (8.5-10.1); CHLORIDE 100 MMOL/L (99-107); CREATININE 0.92 MG/DL (0.40-0.90); PRE OP ALT 34 U/L (30-65); PRE OP ANION GAP 9 (8-16); PRE OP AST 31 U/L (10-37); PRE OP BILIRUB, TOTAL 0.6 MG/DL (0.0-1.0); PRE OP GLUCOSE 89 MG/DL (70-104); PRE OP POTASSIUM 4.1 MMOL/L (3.4-5.1); PRE OP SODIUM 136 MMOL/L (135-145); TOTAL CARBON DIOXIDE 27.5 MMOL/L (24-32); TOTAL PROTEIN 7.5 G/DL (6.4-8.2); eGFR 58 ML/MIN
[~2022-11-16] VITALS: Ht 160 cm; Wt 69.8 kg
[2022-11-16] VITALS (30 sets, daily range): BP systolic 122–201; BP diastolic 53–89
[~2022-11-16 07:35] MED LIST changes: +AMI200T PO; -AMIO200T61 PO; +CALC-1135 PO; -CALC500T63 PO; +CRAN400C PO; +DOCUMENT DATE & TIME OF BETA-BLOCKER PO ONE; +DONE10TA19 PO; +MAGN400C PO; +PSYL575P22 PO; +WARF-65 PO; +ZINC50CA2 PO; +aspirin 325mg tablet PO ONE; +cefazolin 2gm/D5W 100mL 100 ML IV ONE; +famotidine 20mg tablet PO ONE; +nitroPRUSSIDE (NIPRIDE) (200MCG/ML) 100ML Drip IV SCH; +ondansetron/PF 4mg/2ml inj IV PRN; +phenylephrine inj 50 MG in normal saline 250ml IV solN IV SCH; +ringers solution, lacted 1,000 ML IV SCH; +vancomycin/NS 1 GM in NS 250 ML IV ONE
[2022-11-16 10:03] LABS: PRE OP PARTIAL THROMB. TIME 40 SECONDS (22-32)
[2022-11-16] MEDS ORDERED: DENOSUMAB 60 MG/ML inj. SQ SCH (10:15)
[2022-11-16] MEDS ORDERED: LIDOcaine 1% 30ml preserv. free vial ONE (10:42)
[2022-11-16] MEDS ORDERED: heparin 1,000 UNITS/NS 500ml 1,500 ML ONE (10:42)
[2022-11-16] MEDS ORDERED: iohexol 350MG/ML 100ml bottle IV ONE (10:42)
[2022-11-16] MEDS ORDERED: fentaNYL/PF 50MCG/1 ML 2ML syringe ONE (10:46)
[2022-11-16] MEDS ORDERED: midazolam 1 mg/ML 2ml injection ONE (10:46)
[2022-11-16] MEDS ORDERED: protamine sulfate 10mg/ml inj. ONE (11:32)
[2022-11-16] MEDS ORDERED: heparin 1,000unit/ml 10ml vial 10 ML ONE (11:46)
[2022-11-16] MEDS ORDERED: propofol inj 20 ML IV ONE ×2 (11:46)
[2022-11-16] MEDS ORDERED: potassium Cl 40MEQ/270ML bag 250 ML IV PRN (12:05)
[2022-11-16] MEDS ORDERED: potassium Cl 20mEq/100mL bag 100 ML IV PRN (12:05)
[2022-11-16] MEDS ORDERED: normal saline 1000ml 1,000 ML IV SCH (12:05)
[2022-11-16] MEDS ORDERED: magnesium 4gm in 100ml NS 100 ML IV PRN (12:05)
[2022-11-16] MEDS ORDERED: potassium Cl 40MEQ/1/2NS 520ml 520 ML IV PRN (12:05)
[2022-11-16] MEDS ORDERED: diphenhydrAMINE 25mg capsule PO PRN (12:05)
[2022-11-16] MEDS ORDERED: proCHLORperazine 10 MG/2 ml inj IV PRN ×2 (12:05→12:15)
[2022-11-16] MEDS ORDERED: labetalol 20mg/4ml (5mg/ml) syringe IV PRN ×2 (12:05→12:15)
[2022-11-16] MEDS ORDERED: ondansetron/PF 4mg/2ml inj IV PRN ×2 (12:05→12:15)
[2022-11-16] MEDS ORDERED: acetaminophen 325mg tablet PO PRN (12:05)
[2022-11-16] MEDS ORDERED: potassium CL 10mEq/100ml bag 100 ML IV PRN (12:05)
[2022-11-16] MEDS ORDERED: docusate sod 100mg capsule PO PRN (12:05)
[2022-11-16] MEDS ORDERED: HYDROcodone/acetaminophen 5mg/325mg tablet PO PRN (12:05)
[2022-11-16] MEDS ORDERED: ALPRAZolam 0.25mg tablet PO PRN (12:05)
[2022-11-16] MEDS ORDERED: potassium Cl 20 mEq SR tablet PO PRN (12:05)
[2022-11-16] MEDS ORDERED: pantoprazole 40mg Tablet.DR PO PRN (12:05)
[2022-11-16] MEDS ORDERED: hydrALAZINE 20mg/ml inj. IV PRN ×2 (12:05→12:15)
[2022-11-16] MEDS ORDERED: magnesium 2GM in 50ml NS 50 ML IV PRN (12:05)
--- NOTE | 2022-11-16 12:13 | NUR ---
Received from OR via HOSPITAL BED TO RR 7, accompanied by Anesthesiologist DR CASSIDY and report given by Anesthesiolgist. PT PRESENTS WITH 20G RIGHT WRIST, SRT LINE LEFT WRIST, SPO2 98% 6L MASK, BILATERAL GROIN SITES SOFT NON-TENDER CDI, NEURO CHECK, LR RUNNING AT 100MLS/HR, BP 190/84 OTHERWISE VSS. Addendum: 11/16/22 at 1258 by Lala Garcia RN, RN Amended: Links added.
--- NOTE | 2022-11-16 12:13 | NUR ---
BILATERL DORALIS PEDUS AND POSTERIOR TIBIALIS PALPABLE Addendum: 11/16/22 at 1304 by Lala Garcia RN, RN Amended: Links added.
[2022-11-16] MEDS ORDERED: meperidine/PF 25mg/ml syringe IV PRN ×2 (12:15)
[2022-11-16] MEDS ORDERED: morphine 4 MG/ML inj SYRINge IV PRN (12:15)
[2022-11-16] MEDS ORDERED: acetaminophen 1,000mg/100ml IV 100 ML IV PRN (12:15)
[2022-11-16] MEDS ORDERED: ringers solution, lacted 1,000 ML IV SCH (12:15)
[2022-11-16] MEDS ORDERED: morphine 2 MG/ML inj. syringe IV PRN (12:15)
[2022-11-16] MEDS: meperidine/PF 25mg/ml syringe IV PRN ×2 (12:22→13:06)
--- NOTE | 2022-11-16 13:39 | NUR ---
DR LOZADA AT BEDSIDE TALKING WITH PTEfrem LAZAR PER DR LOZADA TO TAKE OUT THE ART LINE. Addendum: 11/16/22 at 1340 by Lala Garcia RN, RN Amended: Links added.
--- NOTE | 2022-11-16 13:58 | NUR ---
ART LINE REMOVED FROM LEFT WRIST, PT TOLERATED WELL. 2X2 WITH COBAN WRAP DRESSING APPLIED. PT TOLERATED WELL. Addendum: 11/16/22 at 1358 by Lala Garcia RN, RN Amended: Links added.
--- NOTE | 2022-11-16 15:03 | NUR ---
Report called to receiving nurse MARCELLA FREITAS. Transferred via HOSPITAL BED ON MONITOR TO ROOM 3014A. BED IN LOW LOCKED POSITION WITH CALL LIGHT IN REACH, PT HOOKES UP TO MONITORS. TWO PT Belongings BAGS TO ROOM 3014A WITH PT. Special Issues communicated to receiving nurse. Addendum: 11/16/22 at 1546 by Lala Garcia RN, RN Amended: Links added.
[2022-11-16] MEDS: ceFAZolin 1GM/D5W- ADD-VANTAGE 50 ML IV SCH (16:40)
--- NOTE | 2022-11-16 19:14 | NUR ---
Problems reprioritized. Patient report given, questions answered & plan of care reviewed with Ni FREITAS, patient stable at transfer of care.
[2022-11-16] MEDS: carvedilol 6.25mg tablet PO SCH (21:00)
[2022-11-16] MEDS ORDERED: psyllium seed 5.8 gm packet (sugar-free) PO SCH (21:00)
[2022-11-16] MEDS ORDERED: CYPROHEPTADINE 4 MG TABLET PO SCH (21:00)
[2022-11-16] MEDS ORDERED: VIT D3 PO SCH (21:00)
[2022-11-16] MEDS ORDERED: warfarin 2.5mg tablet PO SCH (21:00)
[2022-11-16] MEDS ORDERED: vitamin B comp w/Vit. C tab 1 TAB TABLET PO SCH (21:00)
[2022-11-16] MEDS ORDERED: OMEGA-3/DHA/EPA/FISH OIL 1 EACH CAPSULE.DR PO SCH (21:00)
[2022-11-16] MEDS ORDERED: donepezil 5mg tablet PO SCH (21:00)
[2022-11-16] MEDS ORDERED: CALCIUM CITRATE PO SCH (21:00)
[2022-11-16] MEDS ORDERED: non-formulary drug (Zinc Acetate (Galzin) 1 CAP) PO SCH (21:00)
[2022-11-16] MEDS ORDERED: magnesium oxide 400mg tablet PO SCH (21:00)
[2022-11-16] MEDS ORDERED: ascorbic acid 500mg tablet PO SCH (21:00)
[2022-11-16] MEDS ORDERED: zolpidem 5mg tablet PO SCH (21:00)
[2022-11-16] MEDS ORDERED: amiodarone 200mg tablet PO SCH (21:00)
[2022-11-16] MEDS ORDERED: CRANBERRY 650 MG PO SCH (21:00)
[2022-11-16] MEDS ORDERED: lactobacillus rhamnosus 10,000 MMU CELLS/CAPSULE PO SCH (21:00)
[2022-11-16] MEDS: sacubitril/valsartan 24mg-26mg tablet PO SCH (21:01)
[2022-11-16] MEDS: vancomycin/NS 1 GM ADD-VANTAGE 250 ML IV SCH (21:12)
[2022-11-17] VITALS: BP 136/62
[2022-11-17] MEDS: ceFAZolin 1GM/D5W- ADD-VANTAGE 50 ML IV SCH ×2 (00:35→07:29)
[2022-11-17 02:00] VITALS: BP 125/48
[2022-11-17 06:00] VITALS: BP 123/53
--- NOTE | 2022-11-17 06:12 | NUR ---
Patient report given, questions answered & plan of care reviewed with ANDIE Andrade
--- NOTE | 2022-11-17 06:22 | NUR ---
Patient in room PCU 3014. I have received report from Ni FREITAS and had the opportunity to ask questions and assume patient care.
[2022-11-17 06:47] LABS: BASOPHILS % (AUTO) 0.7 % (0-1); EOSINOPHILS # (AUTO) 0.1 X10'3 (0-0.9); HEMATOCRIT 35.2 % (35.0-45.0); HEMOGLOBIN 11.9 g/dl (12.0-16.0); LYMPHOCYTES # (AUTO) 1.1 X10'3 (1.1-4.8); LYMPHOCYTES % (AUTO) 21.4 % (21-51); MEAN CORPUSCULAR HEMOGLOBIN 30.6 PG (27.0-31.0); MEAN CORPUSCULAR HGB CONC 33.8 g/dL (33.0-36.5); MEAN CORPUSCULAR VOLUME 90.5 FL (78-98); MEAN PLATELET VOLUME 6.3 FL (7.4-10.4); MONOCYTES # (AUTO) 0.6 X10'3 (0-0.9); MONOCYTES % (AUTO) 11.4 % (2-12); NEUTROPHILS # (AUTO) 3.4 X10'3 (1.8-7.7); NEUTROPHILS % (AUTO) 65.5 % (42-75); PLATELET COUNT 269 X10'3 (140-440); RED BLOOD COUNT 3.89 X10'6 (4.20-5.60); RED CELL DISTRIBUTION WIDTH 14.2 % (11.5-14.5); WHITE BLOOD COUNT 5.2 X10'3 (4.5-11.0)
[2022-11-17 07:17] LABS: ALANINE AMINOTRANSFERASE 24 U/L (12-78); ALBUMIN 2.9 G/DL (3.4-5.0); ALKALINE PHOSPHATASE 48 IU/L (46-116); ANION GAP 8 (8-16); ASPARTATE AMINO TRANSFERASE 28 U/L (10-37); BILIRUBIN,TOTAL 0.5 MG/DL (0.1-1.0); BLOOD UREA NITROGEN 8 MG/DL (7-18); BUN/CREATININE RATIO 10.7 (10.0-20.0); CHLORIDE 103 MMOL/L (99-107); CREATININE 0.75 MG/DL (0.40-0.90); GLUCOSE 91 MG/DL (70-104); MAGNESIUM 2.1 MG/DL (1.5-2.4); POTASSIUM 3.5 MMOL/L (3.5-5.1); SODIUM 137 MMOL/L (135-145); TOTAL CARBON DIOXIDE 26.5 MMOL/L (24-32); TOTAL PROTEIN 5.9 G/DL (6.4-8.2); eGFR 74 ML/MIN
[2022-11-17] MEDS ORDERED: pantoprazole 40mg Tablet.DR PO SCH (08:00)
[2022-11-17] MEDS: sod chloride 0.9% 10ml flush syringe IV SCH ×2 (08:00)
[2022-11-17] MEDS ORDERED: levoTHYROXINE 25mcg tablet PO SCH (08:00)
[2022-11-17] MEDS ORDERED: spironolactone 25 MG tablet PO SCH (08:00)
[2022-11-17] MEDS ORDERED: cholecalciferol (vitamin D3) 1,000 unit (25mcg) tablet PO SCH (08:00)
[2022-11-17] MEDS: vancomycin/NS 1 GM ADD-VANTAGE 250 ML IV SCH (08:35)
[2022-11-17] MEDS: sacubitril/valsartan 24mg-26mg tablet PO SCH (09:19)
[2022-11-17] MEDS: carvedilol 6.25mg tablet PO SCH (09:19)
[2022-11-17 11:00] VITALS: BP 159/59
[2022-11-17] MEDS ORDERED: ondansetron 4mg rapidly disintigrating tab PO PRN (14:16)
--- NOTE | 2022-11-17 14:40 | NUR ---
Patient is discharged. IV and telebox DCed and telebox given to teletech. Patient is stable and has no c/o pain or discomfort at time of discharge. All discharge instuctions given to patient and she left in a private vehicle accompanied by her .
[2022-11-21] MEDS ORDERED: warfarin 2.5mg tablet PO SCH (21:00)
== END 2022-11-17 14:57 | disposition home or self-care (01) | DRG 267 ==
LOC: PAS IN 07:35 → PCU 3S 14:47
PROVIDERS: ADMIT Internal Medicine Cardiovascular Disease; ATTEND Internal Medicine Cardiovascular Disease
PROC: B41D1ZZ Fluoroscopy of Aorta and Bilateral Lower Extremity Arteries using Low Osmolar Contrast (ICD-10-PCS; 2022-11-16)
PROC: 02RF38Z Replacement of Aortic Valve with Zooplastic Tissue, Percutaneous Approach (ICD-10-PCS; principal; 2022-11-16 10:40)
PROC: 5A09357 Assistance with Respiratory Ventilation, Less than 24 Consecutive Hours, Continuous Positive Airway Pressure (ICD-10-PCS; 2022-11-17)
DX: I35.0 Nonrheumatic aortic (valve) stenosis (principal); Z00.6 Encounter for examination for normal comparison and control in clinical research program; E78.5 Hyperlipidemia, unspecified; I11.0 Hypertensive heart disease with heart failure; I48.0 Paroxysmal atrial fibrillation; I50.9 Heart failure, unspecified; I70.0 Atherosclerosis of aorta; G47.30 Sleep apnea, unspecified; I49.5 Sick sinus syndrome; M25.532 Pain in left wrist; Z95.0 Presence of cardiac pacemaker; Z79.899 Other long term (current) drug therapy
CPT/HCPCS: 33361; 36415; 71045; 71046; 76937; 80053; 81003; 82948; 83735; 83880; 84443; 85025; 85347; 85610; 85730; 86885; 86900; 86901; 86920; 87081; 93005; 93308; A4615; A4618; A6258; A6449; C1756; C1760; C1769; C1894; G0378; J0360; J0690; J1644; J2175; J2250; J2405; J2704; J2720; J3010; J3370; J3490; J7040; J7120; Q9967

== ENCOUNTER 2023-01-30 10:31 | Day surgery (SDC) | payer MEDICARE ==
[2023-01-22 15:14] LABS: EOSINOPHILS # (AUTO) 0.1 X10'3 (0-0.9); EOSINOPHILS % (AUTO) 1.3 % (0-6); HEMATOCRIT 38.5 % (35.0-45.0); HEMOGLOBIN 12.8 g/dl (12.0-16.0); LYMPHOCYTES # (AUTO) 1.1 X10'3 (1.1-4.8); LYMPHOCYTES % (AUTO) 26.5 % (21-51); MEAN CORPUSCULAR HEMOGLOBIN 30.2 PG (27.0-31.0); MEAN CORPUSCULAR HGB CONC 33.2 g/dL (33.0-36.5); MEAN PLATELET VOLUME 6.8 FL (7.4-10.4); MONOCYTES # (AUTO) 0.4 X10'3 (0-0.9); MONOCYTES % (AUTO) 10.1 % (2-12); NEUTROPHILS # (AUTO) 2.5 X10'3 (1.8-7.7); NEUTROPHILS % (AUTO) 61.1 % (42-75); PLATELET COUNT 267 X10'3 (140-440); RED BLOOD COUNT 4.23 X10'6 (4.20-5.60); RED CELL DISTRIBUTION WIDTH 14.1 % (11.5-14.5); WHITE BLOOD COUNT 4.1 X10'3 (4.5-11.0)
[2023-01-22 15:25] LABS: APTT 39 SECONDS (22-32); INR 2.8 INR; PROTHROMBIN TIME 28.4 SECONDS (9.0-12.0)
[2023-01-22 15:26] LABS: ALBUMIN 3.5 G/DL (3.4-5.0); ANION GAP 7 (8-16); BLOOD UREA NITROGEN 13 MG/DL (7-18); BUN/CREATININE RATIO 15.7 (10.0-20.0); CHLORIDE 102 MMOL/L (99-107); CREATININE 0.83 MG/DL (0.40-0.90); GLUCOSE 93 MG/DL (70-104); POTASSIUM 3.8 MMOL/L (3.5-5.1); SODIUM 136 MMOL/L (135-145); TOTAL CARBON DIOXIDE 27.4 MMOL/L (24-32); eGFR 66 ML/MIN
[~2023-01-30] VITALS: Ht 160 cm; Wt 68.9 kg
[2023-01-30] VITALS (9 sets, daily range): BP systolic 133–178; BP diastolic 68–93; PULSE 60–61; RESP 16; TEMP 98; O2SAT 93–97
[~2023-01-30 10:31] MED LIST changes: -DOCUMENT DATE & TIME OF BETA-BLOCKER PO ONE; -aspirin 325mg tablet PO ONE; -cefazolin 2gm/D5W 100mL 100 ML IV ONE; -famotidine 20mg tablet PO ONE; -nitroPRUSSIDE (NIPRIDE) (200MCG/ML) 100ML Drip IV SCH; -ondansetron/PF 4mg/2ml inj IV PRN; -phenylephrine inj 50 MG in normal saline 250ml IV solN IV SCH; -ringers solution, lacted 1,000 ML IV SCH; -vancomycin/NS 1 GM in NS 250 ML IV ONE
[2023-01-30] MEDS ORDERED: normal saline 1,000 ML IV SCH (10:45)
[2023-01-30] MEDS ORDERED: LORazepam 0.5 MG tablet PO PRN (10:45)
[2023-01-30] MEDS ORDERED: DONE10TA44 PO (11:02)
[2023-01-30 11:26] LABS: INR 1.4 INR; PROTHROMBIN TIME 15.1 SECONDS (9.0-12.0)
[2023-01-30] MEDS ORDERED: midazolam 1 mg/ML 2ml injection ONE (12:37)
[2023-01-30] MEDS ORDERED: fentaNYL/PF 50MCG/1 ML 2ML syringe ONE (12:37)
[2023-01-30] MEDS ORDERED: LIDOcaine 1% (10mg/ml)w/preservative inj. 20ml MDV ONE (12:38)
[2023-01-30] MEDS ORDERED: iohexol 350 MG/ML 50ML vial IV ONE (12:38)
[2023-01-30] MEDS ORDERED: HYDROcodone/acetaminophen 10/325mg tab PO PRN (14:35)
[2023-01-30] MEDS ORDERED: HYDROcodone/acetaminophen 5mg/325mg tablet PO PRN (14:35)
[2023-01-31 06:47] LABS: ISTAT HGB MIX 11.6 g/dl (12.0-16.0); ISTAT Hct MIX 34 %PCV (35-45); ISTAT O2 SATURATION MIX VENOUS 69 % (60-80); ISTAT SOURCE BLNK
== END 2023-01-30 17:00 | disposition home or self-care (01) ==
LOC: SSTAY O 10:31
PROVIDERS: ATTEND Student in an Organized Health Care Education/Training Program
DX: I11.0 Hypertensive heart disease with heart failure (principal); I50.22 Chronic systolic (congestive) heart failure; E87.1 Hypo-osmolality and hyponatremia; E87.6 Hypokalemia; I48.0 Paroxysmal atrial fibrillation; G47.33 Obstructive sleep apnea (adult) (pediatric); G43.909 Migraine, unspecified, not intractable, without status migrainosus; K21.9 Gastro-esophageal reflux disease without esophagitis; E78.5 Hyperlipidemia, unspecified; Z79.899 Other long term (current) drug therapy; Z79.01 Long term (current) use of anticoagulants; Z85.42 Personal history of malignant neoplasm of other parts of uterus; Z95.810 Presence of automatic (implantable) cardiac defibrillator; Z95.2 Presence of prosthetic heart valve
CPT/HCPCS: 33289; 36415; 80048; 82803; 85014; 85025; 85610; 85730; 99152; C2624; J2250; J3010; J3490; J7030; Q9967; 99153; A6258; A6402; C1751; C1769; C1894

== ENCOUNTER 2024-01-03 06:40 | Outpatient (CLI) | payer MEDICARE ==
[~2024-01-03 06:40] MED LIST changes: -CRAN400C PO; -CYPR4TAB57 PO; -DENO60DI SUBCUT; -DONE10TA19 PO; +FURO-150 PO; -MAGN400C PO; +MELA10TA2 PO; -SPIR25TA5 PO; -WARF-65 PO; -ZINC50CA2 PO
== END 2024-01-03 23:59 | disposition home or self-care (01) ==
LOC: TAVR 06:40
PROVIDERS: ATTEND Internal Medicine Cardiovascular Disease
DX: Z48.812 Encounter for surgical aftercare following surgery on the circulatory system (principal); Z95.2 Presence of prosthetic heart valve